=== PATIENT | male | born 1970 | race Caucasian/White ===

== ENCOUNTER 2016-10-12 14:24 | Day surgery (SDC) | payer OTHER ==
[~2016-10-12] VITALS: Ht 182.9 cm; Wt 83.5 kg
[~2016-10-12 14:24] MED LIST: CELEBREX100 MG PO; DEPAKOTE250 MG PO; EFFEXOR75 MG PO; FIBER THERAPY0.52 GM PO; INDERAL10 MG PO; LEVO-T137 MCG PO; LO-DOSE ASPIRIN81 M1 PO; LORCET 5-325 M1 EACH PO; LOTENSIN40 MG PO; NEURONTIN300 MG PO; OMEPRAZOLE40 M1 PO; PRAVACHOL40 MG PO; ULTRAM50 MG PO; VITAMIN D32000 UNI1 PO; XANAX0.25 MG PO
== END 2016-10-12 16:20 | disposition home or self-care (01) ==
LOC: PAIN 14:24 → SDC 15:00 → PAIN 16:20
PROC: 3E0S33Z Introduction of Anti-inflammatory into Epidural Space, Percutaneous Approach (ICD-10-PCS; principal; 2016-10-12)
DX: M54.16 Radiculopathy, lumbar region (principal); M47.9 Spondylosis, unspecified; Z79.891 Long term (current) use of opiate analgesic; I10 Essential (primary) hypertension; E78.5 Hyperlipidemia, unspecified; E03.9 Hypothyroidism, unspecified; Z88.0 Allergy status to penicillin; Z91.012 Allergy to eggs
CPT/HCPCS: J1100; J2250; J3010

== ENCOUNTER 2016-11-09 08:00 | Day surgery (SDC) | payer OTHER ==
[~2016-11-09] VITALS: Ht 182.9 cm; Wt 84.4 kg
== END 2016-11-09 10:06 | disposition home or self-care (01) ==
LOC: PAIN 08:00 → SDC 08:30 → PAIN 08:30
DX: M54.17 Radiculopathy, lumbosacral region (principal); M47.896 Other spondylosis, lumbar region; I10 Essential (primary) hypertension; E78.5 Hyperlipidemia, unspecified; E03.9 Hypothyroidism, unspecified
CPT/HCPCS: J1030; J2250; J3010; S0020

== ENCOUNTER 2017-07-03 09:19 | Day surgery (SDC) | payer OTHER ==
[2017-07-03] MEDS ORDERED: CRESTOR40 MG PO (09:55)
== END 2017-07-03 11:24 | disposition home or self-care (01) ==
LOC: PAIN 09:19 → SDC 10:15 → PAIN 11:24
DX: M53.3 Sacrococcygeal disorders, not elsewhere classified (principal); M96.1 Postlaminectomy syndrome, not elsewhere classified; M47.26 Other spondylosis with radiculopathy, lumbar region; I10 Essential (primary) hypertension; E03.9 Hypothyroidism, unspecified; Z79.891 Long term (current) use of opiate analgesic; Z88.0 Allergy status to penicillin; Z79.82 Long term (current) use of aspirin
CPT/HCPCS: J1030; J2250; J3010; S0020

== ENCOUNTER 2017-08-16 09:10 | Day surgery (SDC) | payer OTHER ==
[~2017-08-16] VITALS: Ht 182.9 cm; Wt 87.1 kg
[~2017-08-16 09:10] MED LIST changes: +CRESTOR40 MG PO
== END 2017-08-16 10:56 | disposition home or self-care (01) ==
LOC: PAIN 09:10 → SDC 10:00 → PAIN 10:00
DX: M53.3 Sacrococcygeal disorders, not elsewhere classified (principal); M46.1 Sacroiliitis, not elsewhere classified; M47.26 Other spondylosis with radiculopathy, lumbar region; M96.1 Postlaminectomy syndrome, not elsewhere classified; I10 Essential (primary) hypertension; E78.5 Hyperlipidemia, unspecified; E03.9 Hypothyroidism, unspecified; F41.8 Other specified anxiety disorders; Z79.82 Long term (current) use of aspirin; Z79.891 Long term (current) use of opiate analgesic
CPT/HCPCS: J1030; J1100; J2250; J3010; S0020

== ENCOUNTER 2017-10-23 09:32 | Day surgery (SDC) | payer OTHER ==
[~2017-10-23] VITALS: Ht 182.9 cm; Wt 82.1 kg
[~2017-10-23 09:32] MED LIST changes: +PERCOCET 10/1 TABLET PO; +VITAMIN B COMP1 EACH PO
== END 2017-10-23 11:10 | disposition home or self-care (01) ==
LOC: PAIN 09:32 → SDC 10:00 → PAIN 10:00
DX: M46.1 Sacroiliitis, not elsewhere classified (principal); M54.16 Radiculopathy, lumbar region; Z79.899 Other long term (current) drug therapy; I10 Essential (primary) hypertension; E78.00 Pure hypercholesterolemia, unspecified; E03.9 Hypothyroidism, unspecified; Z98.890 Other specified postprocedural states; Z79.82 Long term (current) use of aspirin; Z88.0 Allergy status to penicillin
CPT/HCPCS: 93005; J1030; J2250; J3010; S0020

== ENCOUNTER 2018-04-02 12:38 | Day surgery (SDC) | payer OTHER ==
[~2018-04-02] VITALS: Ht 182.9 cm; Wt 82.1 kg
[~2018-04-02 12:38] MED LIST changes: +MEN'S MULTI-VI1 EACH PO
== END 2018-04-02 14:45 | disposition home or self-care (01) ==
LOC: PAIN 12:38 → SDC 13:30 → PAIN 13:30
PROC: 3E0U33Z Introduction of Anti-inflammatory into Joints, Percutaneous Approach (ICD-10-PCS; principal; 2018-04-02)
PROC: 3E0U3BZ Introduction of Anesthetic Agent into Joints, Percutaneous Approach (ICD-10-PCS; principal; 2018-04-02)
DX: M53.3 Sacrococcygeal disorders, not elsewhere classified (principal); M46.1 Sacroiliitis, not elsewhere classified; M79.1 Myalgia; M54.16 Radiculopathy, lumbar region; I10 Essential (primary) hypertension; E78.00 Pure hypercholesterolemia, unspecified; E03.9 Hypothyroidism, unspecified; Z79.82 Long term (current) use of aspirin; Z79.891 Long term (current) use of opiate analgesic
CPT/HCPCS: J1030; J2250; S0020